=== PATIENT | male | born 1995 | race Caucasian/White ===

== ENCOUNTER 2018-06-17 22:16 | Emergency (ER) | payer SELFPAY ==
--- NOTE | 2018-06-17 22:49 | RAD ---
FRONTAL VIEW CHEST SERIES: 06/17/18 INDICATION: Syncope. FINDINGS: There is no consolidation, effusion or pneumothorax. The lungs are mildly hyperinflated. Cardiac silh ouette is within normal limits in size by portable technique. IMPRESSION: No focal consolidation. Hyperinflated lungs. This can be seen in the setting of asthma. Correlate clinically. POS: [facility]
[2018-06-17 22:55] LABS: #Eosinphils 0.2 thou/uL (0.0-0.7); #Lymphocytes 2.3 thou/uL (1.20-3.40); #Monocytes 0.6 thou/uL (0.11-0.59); #Neutrophils 5.5 thou/uL (1.40-6.50); %Basophils 0.2 % (0.0-1.0); %Eosinophils 2.3 % (0.0-10.0); %Lymphocytes 26.5 % (21.0-51.0); %Monocytes 6.6 % (0.0-10.0); %Neutrophils 64.4 % (42.0-75.0); Hemoglobin 16.8 g/dL (14.0-18.0); Mean Corpuscular HGB CONC 35.3 g/dL (32.0-36.0); Mean Corpuscular Hemoglobin 32.1 pg (27.0-31.0); Mean Platelet Volume 7.7 fL (7.4-10.4); Platelet Count 221 thou/uL (130-400); RBC Distribution Width 11.8 % (11.5-14.5); Red Blood Cell (RBC) Count 5.22 mill/uL (4.70-6.10); White Blood Cell (WBC) Count 8.5 thou/uL (4.8-10.8)
[2018-06-17 23:16] LABS: ALT (SGPT) 10 U/L (8-55); AST (SGOT) 16 U/L (5-34); Albumin 4.7 g/dL (3.5-5.0); Alkaline Phosphatase 79 U/L (40-150); Anion Gap 14 mmol/L (10-20); BUN (Urea Nitrogen) 11 mg/dL (8.9-20.6); Bilirubin, Total 0.8 mg/dL (0.2-1.2); Calc. Creatinine Clearance 0 mL/min (70-130); Calcium 9.2 mg/dL (7.8-10.44); Carbon Dioxide 24 mmol/L (22-29); Chloride 105 mmol/L (98-107); Estimated GFR-MDRD Greater than 90; Globulin 2.2 g/dL (2.4-3.5); Glucose 96 mg/dL (70-105); Potassium 3.6 mmol/L (3.5-5.1); Protein, Total 6.9 g/dL (6.0-8.3); Sodium 139 mmol/L (136-145)
--- NOTE | 2018-06-17 23:17 | CT ---
CT OF HEAD NONCONTRAST 06/17/18 INDICATION: Fall with injury, pain. FINDINGS: Left scalp hematoma is present. There is no intracranial hemorrhage, mass effect, midline shift or ve ntriculomegaly. No depressed calvarial fracture. IMPRESSION: No acute intracranial hemorrhage or mass effect. Left sided scalp hematoma. POS: [facility]
--- NOTE | 2018-06-17 23:20 | CT ---
CERVICAL SPINE CT NONCONTRAST 06/17/18 INDICATION: Fall with neck injury and pain. FINDINGS: There is reversal of the normal cervical curvature. No compression fracture or subluxation. Craniocer vical junction is intact. IMPRESSION: No acute fracture of cervical spine. POS: [facility]
[2018-06-17 23:26] LABS: Bilirubin Negative (Negative); Blood, Urine Negative (Negative); Clarity CLEAR (Clear); Glucose, Urine (Dipstick) Negative (Negative); Leukocyte Negative (Negative); Nitrite Negative (Negative); Protein, Urine (Dipstick) Negative (Neg-Trace); Specific Gravity, Urine 1.003 (1.002-1.036); Urobilinogen 0.2 mg/dL (0.2-1.0); pH, Urine 6.5 (5.0-9.0)
== END 2018-06-18 00:15 | disposition home or self-care (01) ==
LOC: ERS 22:16
DX: S00.83XA Contusion of other part of head, initial encounter (principal); F10.129 Alcohol abuse with intoxication, unspecified; R55 Syncope and collapse; W19.XXXA Unspecified fall, initial encounter
CPT/HCPCS: 36415; 70450; 71045; 72125; 80053; 81003; 85025; 93005